=== PATIENT | female | born 1970 | race Caucasian/White ===

== ENCOUNTER 2023-04-25 08:24 | Outpatient (RCR) | payer OTHER, SELFPAY | END 2023-08-23 23:59 | disposition home or self-care (01) | PROVIDERS: PCP Radiology Radiation Oncology; Visit Provider Radiology Radiation Oncology | DX: I89.0 Lymphedema, not elsewhere classified (principal); Z51.89 Encounter for other specified aftercare | CPT/HCPCS: 92610 ==

== ENCOUNTER 2023-05-01 09:04 | Outpatient (CLI) | payer OTHER, SELFPAY ==
--- NOTE | 2023-05-01 09:15 | CRLHL7_ITS ---
For Patients: As a result of the Century Cures Act, medical imaging exams and procedure reports are released immediately into your electronic medical record. You may view this report before your referring provider. If you have questions, please contact your health care provider. INDICATION: History of squamous cell carcinoma of the tongue. Partial glossectomy. Radiation therapy. Baseline swallowing study. TECHNIQUE: Recorded video swallow performed in conjunction with speech therapy. FINDINGS: The patient tolerated all preparations of barium well. No aspiration. No penetration. No holdup of barium. 1 minute 3 seconds fluoroscopy time utilized. IMPRESSION: Normal recorded video swallow. 1 minute 3 seconds fluoroscopy time utilized. Dictated by Jean Pierre Perez MD @ 05/01/2023 10:04:55 AM (Electronically Signed)
== END 2023-05-01 09:05 | disposition home or self-care (01) ==
LOC: RAD 09:05
PROVIDERS: Visit Provider Radiology Radiation Oncology
DX: C02.9 Malignant neoplasm of tongue, unspecified (principal)
CPT/HCPCS: 74230; 92611

== ENCOUNTER 2023-05-10 08:19 | Outpatient (CLI) | payer OTHER, SELFPAY ==
--- NOTE | 2023-05-10 08:30 | CRLHL7_ITS ---
For Patients: As a result of the Century Cures Act, medical imaging exams and procedure reports are released immediately into your electronic medical record. You may view this report before your referring provider. If you have questions, please contact your health care provider. Indication: Tongue cancer Technique: Postcontrast CT chest. 76 cc Isovue 370 intravenous contrast. Please note that all CT scans at this facility use dose modulation, iterative reconstruction, and/or weight-based dosing when appropriate to reduce radiation dose to as low as reasonably achievable. Comparison: None Findings: The thyroid gland is normal, as visualized. Mild residual thymic tissue is present in the anterior mediastinum. The upper abdomen is within normal limits. Normal dense bilateral breast tissue. No mediastinal, hilar or axillary adenopathy. No suspicious osseous lesion. Incidental Schmorl`s node is present within the superior endplate of T3 and T4. Lungs are clear. No pulmonary nodule or infiltrate. No edema or effusion. No pneumothorax. Impression: No metastatic disease to the chest. Please note that all CT scans at this facility use dose modulation, iterative reconstruction, and/or weight-based dosing when appropriate to reduce radiation dose to as low as reasonably achievable. Dictated by Reno Martinez MD @ 05/10/2023 12:31:09 PM (Electronically Signed)
--- NOTE | 2023-05-10 09:00 | CRLHL7_ITS ---
For Patients: As a result of the Century Cures Act, medical imaging exams and procedure reports are released immediately into your electronic medical record. You may view this report before your referring provider. If you have questions, please contact your health care provider. INDICATION: TONGUE CANCER COMPARISON: 02/26/2023 CT, 05/09/2023 ultrasound TECHNIQUE: A CT volumetric acquisition was performed of the neck during intravenous infusion of 76 cc Isovue 370 nonionic intravenous contrast. Please note that all CT scans at this facility use dose modulation, iterative reconstruction, and/or weight-based dosing when appropriate to reduce radiation dose to as low as reasonably achievable. FINDINGS: Postoperative changes of selective right neck dissection, resection of the right submandibular gland and right glossectomy for squamous cell carcinoma again noted. Similar right-sided lymph nodes when compared to the prior CT study. No necrotic right-sided lymph nodes. There is a new low-density lymph node deep to the sternocleidomastoid muscle, level III, measuring 1.7 x 1.1 x 2.8 cm (AP, LR, cc), corresponding to the ultrasound findings. Decreased conspicuity of relative enhancement about the pharyngeal/tongue base mucosa since the prior exam. Thyroid gland is normal. Lung apices are clear. Degenerative disc disease C5-6. Small mucous retention cyst inferior left maxillary sinus measuring 1.0 cm. Remaining sinuses clear. Left-sided nasal septal spur. No nasal polyps. IMPRESSION: Interval development of a suspicious low-density level III left cervical lymph node measuring 1.7 x 1.1 x 2.8 cm. Please note that all CT scans at this facility use dose modulation, iterative reconstruction, and/or weight-based dosing when appropriate to reduce radiation dose to as low as reasonably achievable. Dictated by Reno Martinez MD @ 05/10/2023 12:15:10 PM (Electronically Signed)
== END 2023-05-10 08:20 | disposition home or self-care (01) ==
PROVIDERS: Visit Provider Radiology Radiation Oncology
DX: C02.9 Malignant neoplasm of tongue, unspecified (principal); R59.9 Enlarged lymph nodes, unspecified
CPT/HCPCS: 70491; 71260; Q9967